=== PATIENT | female | born 1990 | race Caucasian/White ===

== ENCOUNTER 2021-06-09 14:53 | Observation (INO) | payer MEDICAID ==
[~2021-06-09] VITALS: Ht 154.9 cm; Wt 64.4 kg
[2021-06-09 17:46] LABS: CLARITY URINE CLEAR (CLEAR); COLOR URINE YELLOW (YELLOW); KETONES URINE TRACE (NEGATIVE); LEUKOCYTE ESTERASE URINE 1+ (NEGATIVE); NITRITE URINE NEGATIVE (NEGATIVE); OCCULT BLOOD URINE NEGATIVE (NEGATIVE); PROTEIN URINE TRACE (NEGATIVE); SPECIFIC GRAVITY URINE 1.022 (1.005-1.030); UROBILINOGEN URINE 0.2 E.U./dL (0.2-1.0)
[2021-06-09] MEDS ORDERED: PREN1TAB78 PO (21:14)
== END 2021-06-09 21:30 | disposition home or self-care (01) ==
LOC: 8EST NSY 14:53 → 8 EST A/PP 15:08
PROVIDERS: ADMIT Obstetrics & Gynecology; ATTEND Obstetrics & Gynecology
DX: O26.893 Other specified pregnancy related conditions, third trimester (principal); R10.9 Unspecified abdominal pain; Z3A.30 30 weeks gestation of pregnancy
CPT/HCPCS: 59025; 76805; 76818; 81003; G0378; 99281